=== PATIENT | female | born 1965 | race Two or more races ===

== ENCOUNTER 2018-05-01 20:48 | Emergency (ER) | payer BC ==
[~2018-05-01] VITALS: Ht 167.6 cm; Wt 90.7 kg
[~2018-05-01 20:48] MED LIST: AMOX500 PO; CIPR500 PO; HYDACE5 PO; HYDACE5325 PO; LEVFLO500 PO; METR500 PO; NAPR500 PO; OMEP20ER PO; OXYACE5T PO; Percocet 5-3251 EACH PO; RANI150 PO; RXHYD5325 PO
[2018-05-01 22:09] LABS: Source, Urine Clean Catch
[2018-05-01 22:12] LABS: BASOPHILS ABSOLUTE AUTO 0.04 K/mm3 (0.00-0.23); BASOPHILS PERCENT AUTO 1 % (0-2); EOSINOPHILS ABSOLUTE AUTO 0.18 K/mm3 (0.00-0.68); EOSINOPHILS PERCENT AUTO 2 % (0-6); Hematocrit 41.7 % (33.0-51.0); Hemoglobin 13.9 g/dL (11.5-16.0); IMMATURE GRAN ABSOLUTE AUTO 0.05 K/mm3 (0.00-0.10); IMMATURE GRAN PERCENT AUTO 1 % (0-1); LYMPHOCYTES ABSOLUTE AUTO 2.63 K/mm3 (0.84-5.20); LYMPHOCYTES PERCENT AUTO 30 % (21-46); MONOCYTES ABSOLUTE AUTO 0.58 K/mm3 (0.16-1.47); MONOCYTES PERCENT AUTO 7 % (4-13); Mean Corpuscular HGB 31.6 pg (26.0-34.0); Mean Corpuscular HGB Conc 33.3 g/dL (31.5-36.5); Mean Corpuscular Volume 95 fL (80-100); Mean Platelet Volume 9.5 fL (9.1-12.4); NEUTROPHILS PERCENT AUTO 60 % (41-73); Platelet Count 270 K/mm3 (150-400); RDW Coefficient Variation 13.4 % (11.7-14.2); RDW Standard Deviation 47.1 fL (35.1-46.3); White Blood Cell Count 8.78 K/mm3 (4.00-11.30)
[2018-05-01 22:14] LABS: Bilirubin, Urine Neg (Neg); Blood, Urine Neg (Neg); Glucose Qualitative, Urine Neg (Neg); Ketones, Urine Neg (Neg); Leukocyte Esterase, Urine Neg (Neg); Nitrite, Urine Neg (Neg); Protein, Urine Neg (Neg); Urobilinogen, Urine NORM (Normal); pH, Urine 6.5 (5.0-8.0)
[2018-05-01 22:16] LABS: Appearance, Urine Clear (Clear); Color, Urine Yellow (P-Yellow)
[2018-05-01 22:22] LABS: Alanine Aminotransfer (ALT/SGP 77 U/L (12-78); Albumin, Blood 3.2 g/dL (3.4-5.0); Albumin/Globulin Ratio 0.7 (0.8-1.8); Alk Phos 120 U/L (50-136); Anion Gap 7 mmol/L (6-16); Aspartate Aminotrans (AST/SGOT 76 U/L (12-37); Bilirubin, Total 0.4 mg/dL (0.1-1.0); Blood Urea Nitrogen 9 mg/dL (8-24); Bun/Creatinine Ratio 18.5 (12.0-20.0); CO2, Blood 28 mmol/L (21-32); Calcium, Blood 8.5 mg/dL (8.5-10.1); Chloride, Blood 106 mmol/L (98-108); Creatinine, Blood 0.49 mg/dL (0.40-1.00); Globulin, Blood 4.8 g/dL (2.2-4.0); Glomerular Filtration Rate >60 (60-); Glucose, Blood 109 mg/dL (70-99); Potassium, Blood 3.6 mmol/L (3.5-5.5); Sodium, Blood 141 mmol/L (136-145)
[2018-05-01] MEDS ORDERED: Prilosec Otc20 MG PO (23:06)
[2018-05-01] MEDS ORDERED: Carafate1 GM/10 ML PO (23:08)
== END 2018-05-01 23:24 | disposition home or self-care (01) ==
LOC: ER 20:48
PROVIDERS: Emergency Medicine
DX: R10.32 Left lower quadrant pain (principal); R11.2 Nausea with vomiting, unspecified
CPT/HCPCS: 36415; 80053; 81003; 83690; 85025; J1885; J2405; J7030

== ENCOUNTER → 2021-08-01 | Outpatient (CLI) | payer BC ==
[~2021-08-01] MED LIST changes: +Amox Tr-K Clv1 EAC1 PO; +Augmentin 500-1 EACH PO; +Carafate1 GM/10 ML PO; +OMEPRAZOLE20 MG PO; +Prilosec Otc20 MG PO
== END | disposition home or self-care (01) ==
LOC: LAB 14:45 → LAB SHORT 14:45
DX: R30.0 Dysuria (principal)
CPT/HCPCS: 87086

== ENCOUNTER 2022-11-03 08:21 | Inpatient (IN) | payer BC ==
[~2022-11-03] VITALS: Ht 162.6 cm; Wt 104.4 kg
[2022-11-03 08:47] LABS: Source, Urine Clean Catch
[2022-11-03 09:28] LABS: BASOPHILS ABSOLUTE AUTO 0.05 K/mm3 (0.00-0.23); BASOPHILS PERCENT AUTO 1 % (0-2); EOSINOPHILS ABSOLUTE AUTO 0.08 K/mm3 (0.00-0.68); EOSINOPHILS PERCENT AUTO 1 % (0-6); Hematocrit 41.8 % (33.0-51.0); Hemoglobin 14.9 g/dL (11.5-16.0); IMMATURE GRAN ABSOLUTE AUTO 0.03 K/mm3 (0.00-0.10); IMMATURE GRAN PERCENT AUTO 1 % (0-1); LYMPHOCYTES ABSOLUTE AUTO 2.06 K/mm3 (0.84-5.20); LYMPHOCYTES PERCENT AUTO 34 % (21-46); MONOCYTES ABSOLUTE AUTO 0.46 K/mm3 (0.16-1.47); MONOCYTES PERCENT AUTO 8 % (4-13); Mean Corpuscular HGB 35.1 pg (26.0-34.0); Mean Corpuscular HGB Conc 35.6 g/dL (31.5-36.5); Mean Corpuscular Volume 98 fL (80-100); Mean Platelet Volume 9.4 fL (9.1-12.4); NEUTROPHILS ABSOLUTE AUTO 3.34 K/mm3 (1.96-9.15); NEUTROPHILS PERCENT AUTO 56 % (41-73); Platelet Count 134 K/mm3 (150-400); RDW Coefficient Variation 12.3 % (11.7-14.2); RDW Standard Deviation 44.3 fL (35.1-46.3); Red Blood Cell Count 4.25 M/mm3 (3.80-5.20); White Blood Cell Count 6.02 K/mm3 (4.00-11.30)
[2022-11-03 09:30] LABS: Bilirubin, Urine Neg (Neg); Blood, Urine 3+ (Neg); Glucose Qualitative, Urine Neg (Neg); Ketones, Urine Neg (Neg); Leukocyte Esterase, Urine 2+ (Neg); Nitrite, Urine Neg (Neg); Protein, Urine 3+ (Neg); Specific Gravity, Urine 1.015 (1.003-1.022); Urobilinogen, Urine 2+ (Normal)
[2022-11-03 09:42] LABS: Appearance, Urine Hazy (Clear); Color, Urine Yellow (P-Yellow)
[2022-11-03 09:48] LABS: Bacteria Few /hpf; Squamous Epithelial Cells Rare /hpf (Few)
[2022-11-03 09:51] LABS: Albumin, Blood 2.7 g/dL (3.4-5.0); Albumin/Globulin Ratio 0.5 (0.8-1.8); Bilirubin, Total 1.4 mg/dL (0.1-1.0); Bun/Creatinine Ratio 9.4 (12.0-20.0); Calcium, Blood 8.6 mg/dL (8.5-10.1); Creatinine, Blood 0.43 mg/dL (0.40-1.00); Globulin, Blood 5.1 g/dL (2.2-4.0); Potassium, Blood 3.4 mmol/L (3.5-5.5); Total Protein, Blood 7.8 g/dL (6.4-8.2)
[2022-11-03] MEDS ORDERED: IBUP800 PO (15:09)
[2022-11-03] MEDS ORDERED: Acetaminophen650 M1 PO (15:09)
--- NOTE | 2022-11-03 16:02 | NUR ---
SHIFT SUMMARY; PATIENT ARRIVED TO [facility] FLOOR APPROX 1530 TODAY FROM ER. SHE IS AO X 4. SPOUSE AT BEDSIDE ASSISTS IN TRANSLATING WHEN PATIENT DOES NOT UNDERSTAND. SHE UNDERSTANDS FAROESE BUT HAS DIFFICULTY SPEAKING IT. PATIENT IS NPO. HER VITAL SIGNS ARE STABLE AND SHE IS COOPERATIVE WITH CARE. SHE IS INDEPENDANT IN ROOM AND USES CALL LIGHT APPROPRIATLY. CURRENTLY PATIENT IS IN CT HAVING A ABDOMINAL CT WITH CONTRAST. WHEN SHE RETURNS IV NS WILL BE HANGING AT 125ML/HR HER VITAL SIGNS ARE WNL. HER LUNGS ARE CLEAR TO AUSCULTATION. NO SKIN ISSUES ARE NOTED.
--- NOTE | 2022-11-04 05:15 | NUR ---
SHIFT SUMMARY 57 YR F ADMITTED ON 11/03/22 FOR COLOVESICAL FISTULA. FULL CODE. PT C/O PAIN IN THE RLQ AT LEVEL OF 7-8. SHE HAS BEEN MEDICATED TWICE WITH FENTANYL PER EMAR. AT APPROX 0300 VITALS WERE TAKEN AND THE RESULTS WERE CONCERNING. HER HR WAS FLUCTUATING BETWEEN MID 30'S-140'S. HER TEMP WAS 103 ORALLY AND 101 TEMPORALY. BP HAD DROPPED TO 81/49 AND HR WAS 41. HOSPITALIST WAS CALLED AND FLUID BOLUS WAS GIVEN WELL TYLENOL AND TELE WAS ORDERED. TEMP CAME DOWN AND BP IMPROVED. PER DOUBLE NEEDLE STITCHER SHE WAS IN SR @ 114. SHE APPEARS TO BE RESTING PEACEFULLY NOW BUT THIS NURSE IS KEEPING A CLOSE EYE ON HER. SURGICAL CONSULT IN THE A.M. STAYED IN THE ROOM WITH HER OVERNIGHT.
[2022-11-04 06:04] LABS: BASOPHILS ABSOLUTE AUTO 0.03 K/mm3 (0.00-0.23); BASOPHILS PERCENT AUTO 1 % (0-2); EOSINOPHILS ABSOLUTE AUTO 0.01 K/mm3 (0.00-0.68); EOSINOPHILS PERCENT AUTO 0 % (0-6); Hematocrit 35.7 % (33.0-51.0); Hemoglobin 12.2 g/dL (11.5-16.0); IMMATURE GRAN ABSOLUTE AUTO 0.02 K/mm3 (0.00-0.10); IMMATURE GRAN PERCENT AUTO 0 % (0-1); LYMPHOCYTES ABSOLUTE AUTO 0.27 K/mm3 (0.84-5.20); LYMPHOCYTES PERCENT AUTO 4 % (21-46); MONOCYTES ABSOLUTE AUTO 0.08 K/mm3 (0.16-1.47); MONOCYTES PERCENT AUTO 1 % (4-13); Mean Corpuscular HGB Conc 34.2 g/dL (31.5-36.5); Mean Corpuscular Volume 102 fL (80-100); Mean Platelet Volume 9.7 fL (9.1-12.4); NEUTROPHILS ABSOLUTE AUTO 5.83 K/mm3 (1.96-9.15); NEUTROPHILS PERCENT AUTO 93 % (41-73); Platelet Count 106 K/mm3 (150-400); RDW Coefficient Variation 12.7 % (11.7-14.2); RDW Standard Deviation 47.2 fL (35.1-46.3); Red Blood Cell Count 3.49 M/mm3 (3.80-5.20); White Blood Cell Count 6.24 K/mm3 (4.00-11.30)
[2022-11-04 09:02] LABS: Bun/Creatinine Ratio 6.1 (12.0-20.0); Calcium, Blood 7.9 mg/dL (8.5-10.1); Creatinine, Blood 0.82 mg/dL (0.40-1.00); Potassium, Blood 2.6 mmol/L (3.5-5.5)
[2022-11-04 20:56] LABS: Source, Urine Clean Catch
[2022-11-04 21:22] LABS: Appearance, Urine Clear (Clear); Bilirubin, Urine Neg (Neg); Blood, Urine 1+ (Neg); Color, Urine Yellow (P-Yellow); Glucose Qualitative, Urine Neg (Neg); Ketones, Urine Neg (Neg); Leukocyte Esterase, Urine 1+ (Neg); Nitrite, Urine Neg (Neg); Protein, Urine 2+ (Neg); Specific Gravity, Urine 1.005 (1.003-1.022); Urobilinogen, Urine NORM (Normal)
--- NOTE | 2022-11-04 21:45 | NUR ---
Received patient on floor at 1919. Received critical LA of 5.1 called into resident who ordered repeat LA and 500ml LR bolus, shortly after that started Dr. Matson called and DC'd the LR and ordered 2L NS bolus and sodium bicarb. Patients MAP continues to drop. Will contact resident.
[2022-11-04 22:08] LABS: Bacteria Mod /hpf; Red Blood Cells, Urine 0-2 /hpf (0-2); Squamous Epithelial Cells Mod /hpf (Few)
--- NOTE | 2022-11-04 22:31 | NUR ---
Patients BP continued to decline despite fluid resuscitation, resident called and came to see patient, order to transfer to ICU fro Levophed. Report called to Hiwot RUCKER and transferred to ICU 15.
--- NOTE | 2022-11-04 23:56 | NUR ---
PT TRANSFER TO ICU 15: PT ARRIVED TO THE UNIT @ 2219 FROM PCU 7. PT TRANSFERRED OVER TO THE UNIT DUE TO HYPOTENSION. WHEN PT ARRIVED SBP IN THE 70'S AND MAP 55<. PT HAD SECOND NS BOLUS INFUSING AND LEVOPHED INITIATED AT 2 MCG; LEVO TITRATED UP TO 6 MCG AND SBP NOW IN THE 100'S. PT HAS NO C/O CHEST PAIN AT THIS TIME; PT SR ON MONITOR. PT BROUGHT OVER TO THE UNIT ON RA AND REMAINS ON RA WITH SPO2 96< AND RR 20-24. PT AFEBRIL WITH TEMP AT 98.7. PT HAS HYPERACTIVE BS IN ALL QUADRANTS AND NO C/O ABD PAIN; ABD ROUND, SOFT, NON-TENDER. PT HAS PPP X 4; PEDAL PULSES FAINT BUT PALPABLE. BED LOWERED, CALL LIGHT IN REACH, WILL CONTINUE TO MONITOR.
[2022-11-05 03:36] LABS: Adenovirus F 40/41 Not Detected (NOT DETECT); Astrovirus Not Detected (NOT DETECT); Campylobacter Sp Not Detected (NOT DETECT); Cryptosporidium Not Detected (NOT DETECT); Cyclospora Cayetanensis Not Detected (NOT DETECT); E. Coli O157 Not Detected (NOT DETECT); Entamoeba Histolytica Not Detected (NOT DETECT); Enteroaggregative E. coli-EAEC Not Detected (NOT DETECT); Enteropathogenic E. coli-EPEC Not Detected (NOT DETECT); Enterotoxigenic E. coli-ETEC Not Detected (NOT DETECT); Giardia Lamblia Not Detected (NOT DETECT); Norovirus GI/GII Not Detected (NOT DETECT); Plesiomonas Shigelloides Not Detected (NOT DETECT); Rotavirus A Not Detected (NOT DETECT); Salmonella Sp Not Detected (NOT DETECT); Sapovirus Not Detected (NOT DETECT); Shiga Toxin-prod E. coli-STEC Not Detected (NOT DETECT); Shigella/Enteroin E. coli-EIEC Not Detected (NOT DETECT); Vibrio Cholerae Not Detected (NOT DETECT); Vibrio Sp Not Detected (NOT DETECT); Yersinia Enterocolitica Not Detected (NOT DETECT)
[2022-11-05 04:03] LABS: Hematocrit 34.1 % (33.0-51.0); Hemoglobin 11.9 g/dL (11.5-16.0); Mean Corpuscular HGB 35.6 pg (26.0-34.0); Mean Corpuscular HGB Conc 34.9 g/dL (31.5-36.5); Mean Corpuscular Volume 102 fL (80-100); Mean Platelet Volume 9.8 fL (9.1-12.4); Platelet Count 115 K/mm3 (150-400); RDW Standard Deviation 48.6 fL (35.1-46.3); Red Blood Cell Count 3.34 M/mm3 (3.80-5.20); White Blood Cell Count 17.48 K/mm3 (4.00-11.30)
[2022-11-05 04:28] LABS: Albumin, Blood 1.7 g/dL (3.4-5.0); Albumin/Globulin Ratio 0.4 (0.8-1.8); Bilirubin, Total 1.1 mg/dL (0.1-1.0); Bun/Creatinine Ratio 14.8 (12.0-20.0); Calcium, Blood 7.3 mg/dL (8.5-10.1); Creatinine, Blood 0.61 mg/dL (0.40-1.00); Globulin, Blood 4.2 g/dL (2.2-4.0); Magnesium, Blood 1.5 mg/dL (1.6-2.4); Potassium, Blood 3.7 mmol/L (3.5-5.5); Total Protein, Blood 5.9 g/dL (6.4-8.2)
[2022-11-05 06:42] LABS: BAND PERCENT MAN 7 % (0-8); BASOPHILS PERCENT MAN 0 % (0-2); EOSINOPHILS ABSOLUTE MAN 0.34 K/mm3 (0.00-0.68); EOSINOPHILS PERCENT MAN 2 % (0-6); LYMPHOCYTES ABSOLUTE MAN 0.87 K/mm3 (0.84-5.20); LYMPHOCYTES PERCENT MAN 5 % (21-46); METAMYELOCYTE ABSOLUTE MAN 0.17 K/mm3 (0.00-0.00); METAMYELOCYTE PERCENT MAN 1 % (0-0); MONOCYTES ABSOLUTE MAN 0.34 K/mm3 (0.16-1.47); MONOCYTES PERCENT MAN 2 % (4-13); MYELOCYTE ABSOLUTE MAN 0.34 K/mm3 (0.00-0.00); MYELOCYTE PERCENT MAN 2 % (0-0); NEUTROPHILS ABSOLUTE MAN 15.38 K/mm3 (1.96-9.15); SEG NEUTROPHILS PERCENT MAN 81 % (41-73); TOTAL CELLS COUNTED 100
--- NOTE | 2022-11-05 06:45 | NUR ---
SHIFT SUMMARY: PT BP HAS IMPROVED WITH SBP IN THE 100'S, MAP 70< AND LEVO GTT @ 2 MCG. PT HAS HAD NO C/O CHEST PAIN OR SOB. PT HAS HAD MANY EPISODES OF DIARRHEA BUT NO C/O ABD PAIN. PT INDEPENDENT WITH BED MOBILITY AND USES SBA WITH TRANSFERRING TO BEDSIDE COMMODE. BED LOWERED, CALL LIGHT IN REACH, WILL CONTINUE TO MONITOR UNTIL ONCOMING RN ARRIVES.
--- NOTE | 2022-11-05 07:33 | NUR ---
Assumed care for pt at 0700. Pt was received from the PCU last night for hypotension, currently on Levophed gtt @ 2 mcg/min and LR gtt @ 150 ml/hr. Pt stil requires a K Phos replacement but does not have a central line at this time, working to have one placed. Spoke w/ Dr. Ayers and he will order a stat abdominal CT this morning. Pt had loose stool overnight. is at bedside, he has acted as birdcage assembler as pt is primarily salvadorean-speaking.
--- NOTE | 2022-11-05 08:11 | NUR ---
RN accompanied pt to CT for a stat scan. Pt remained on Levophed @ 2 mcg/min. Pt left room @ 0750 and returned at 0810.
--- NOTE | 2022-11-05 13:46 | NUR ---
"Spiritual Care Pt. Request | Attempted Pt. is awake in bed and welcomes my visit. After introductions Pt. displayed evidence of indifference to spiritual care. Pt. verbalized that she has no . Will monitor though Pt. doesn't display interest in spiritual care."
--- NOTE | 2022-11-05 14:23 | NUR ---
Levophed has been turned off since 11211/05/22/ Spoke w/ Dr. Marcos who advised to turn of LR gtt and check BP. If her MAPs remain adequate, she should be able to return to the PCU. LR gtt stopped at 1422.
--- NOTE | 2022-11-05 18:37 | NUR ---
LEVOPHED GTT STOPPED @ 1121 AND LR GTT STOPPED @ 1423. PT MAPs REMIANED BETWEEN 70-80 THROUGHOUT THE AFTERNOON. PT ASSIGNED TO PCU 11. RN WHEELED PT W/ AUGUSTUS BARNETT TO PCU 11 AND GAVE BEDSIDE REPORT TO HARMONY. PT HAD NO ACUTE COMPLAINTS AND LEFT ICU W/ HER CARRYING HER PERSONAL EFFECTS.
--- NOTE | 2022-11-06 04:48 | NUR ---
SHIFT SUMMARY: PT ALERT AND ORIENTED X4, ABLE TO FOLLOW COMMANDS AND MAKE NEEDS KNOWN. SPANINSH SPEAKING ONLY, AND SCREEN PRINTING STENCIL PREPARER PHONE AT BEDSIDE. BP STABLE, HR SR 70'S, AFEBRILE, SATURATIONS >95% ON ROOM AIR. RESPIRATIONS EVEN AND UNLABORED. PULSES STRONG AND EQUAL THROUGHOUT. BS HEARD X4 QUADRANTS. NO COMPLAINTS OF N/V/ABDOMINAL PAIN THROUGHOUT THE NIGHT. PT COMPLAINED OF HEADACHE AT BEGINNING OF SHIFT, MEDICATED PER EMAR WITH GOOD RESULTS. LR GTT IN L. FOREARM AT 150MLS/HR. PT ABLE TO REPOS IND IN BED. IND TO AND FROM BATHROOM. NO BM THIS SHIFT. BED IN LOW, CALL LIGHT IN REACH, AT BEDSIDE, WILL REPORT TO ONCOMING RN.
[2022-11-06 05:38] LABS: BASOPHILS ABSOLUTE AUTO 0.06 K/mm3 (0.00-0.23); BASOPHILS PERCENT AUTO 1 % (0-2); EOSINOPHILS ABSOLUTE AUTO 0.16 K/mm3 (0.00-0.68); EOSINOPHILS PERCENT AUTO 2 % (0-6); Hematocrit 33.4 % (33.0-51.0); Hemoglobin 11.2 g/dL (11.5-16.0); IMMATURE GRAN ABSOLUTE AUTO 0.18 K/mm3 (0.00-0.10); IMMATURE GRAN PERCENT AUTO 2 % (0-1); LYMPHOCYTES ABSOLUTE AUTO 1.18 K/mm3 (0.84-5.20); LYMPHOCYTES PERCENT AUTO 16 % (21-46); MONOCYTES ABSOLUTE AUTO 0.54 K/mm3 (0.16-1.47); MONOCYTES PERCENT AUTO 7 % (4-13); Mean Corpuscular HGB 34.9 pg (26.0-34.0); Mean Corpuscular HGB Conc 33.5 g/dL (31.5-36.5); Mean Corpuscular Volume 104 fL (80-100); Mean Platelet Volume 10.2 fL (9.1-12.4); NEUTROPHILS PERCENT AUTO 72 % (41-73); Platelet Count 135 K/mm3 (150-400); RDW Coefficient Variation 13.3 % (11.7-14.2); RDW Standard Deviation 51.4 fL (35.1-46.3); Red Blood Cell Count 3.21 M/mm3 (3.80-5.20); White Blood Cell Count 7.52 K/mm3 (4.00-11.30)
[2022-11-06 05:51] LABS: Bun/Creatinine Ratio 9.8 (12.0-20.0); Calcium, Blood 7.7 mg/dL (8.5-10.1); Creatinine, Blood 0.61 mg/dL (0.40-1.00); Phosphorus, Blood 3.1 mg/dL (2.5-4.9); Potassium, Blood 3.8 mmol/L (3.5-5.5)
--- NOTE | 2022-11-06 18:21 | NUR ---
SHIFT SUMMARY PT HAS BEEN RESTING QUIETLY IN ROOM THROUGHOUT THE DAY. PT'S HAS BEEN AT BEDSIDE ASSISTING PT WITH ADL'S AND WITH COMMUNICATION WITH STAFF. PT C/O HEADACHE IN THE AM THAT WAS TREATED WITH MEDICATION PER EMAR AND UNINTERRUPTED REST. PT DENIED ABDOMINAL DISCOMFORT OR OTHER SOURCES OF PAIN/DISCOMFORT. ALL VITAL SIGNS HAVE REMAINED STABLE, NO ACUTE CHANGES IN CONDITION.
--- NOTE | 2022-11-07 04:39 | NUR ---
SHIFT SUMMARY: PT WITH NO ACUTE CHANGES OVERNIGHT. BP AND HR STABLE, AFEBRILE, SATURATIONS >96% ON ROOM AIR. NO COMPLAINTS OF N/V/ABDOMINAL PAIN THROUGHOUT THE NIGHT. MEDICATED X1 FOR PAIN. PT REMAINS IND IN ROOM, ABLE TO AMBULATE TO AND FROM BATHROOM. REMAINED AT BEDSIDE. PLAN FOR POSSIBLE D/C IN AM. BED IN LOW, CALL LIGHT IN REACH, WILL REPORT TO ONCOMING RN.
--- NOTE | 2022-11-07 09:56 | NUR ---
CARE ASSUMPTION THIS RN ASSUMED CARE AT 0700. VSS. TELE SR 70S. PATIENT IS ALERT AND ORIENTED X4. PATIENT REPORTS NO PAIN, CHEST PAIN/PRESSURE, OR SHORTNESS OF BREATH. SEE SHIFT ASSESSMENT FOR FURTHER DETIALS. PATIENT IS INDEPDENT IN ROOM. PATIENT USES CALL LIGHT APPORPIATELY. CALL LIGHT WITHIN REACH AND BED IN LOWEST POSITION. MD JASSO BY TO SEE PATIENT. PATIENT CAN BE DISCHARGED TODAY AND MD MURCIA OFFICE WILL FOLLOW UP WITH THE PATIENT FOR OUT PATIENT COLONOSCOPY. PLAN OF CARE UP TO DATE.
[2022-11-07] MEDS ORDERED: AMOCLA875 PO (11:11)
[2022-11-07] MEDS ORDERED: VISBIOME 112.51 EACH PO (11:13)
--- NOTE | 2022-11-07 11:53 | NUR ---
DISCHARGE PATIENT LEFT AT 1153. PATIENT WAS IN NO DISTRESS. PATIENT HAD ALL BELONGINGS AND DISCHARGE EDUCATION WITH THE PATIENT. THIS RN EDUCATED THE PATIENT ON DISCHARGE EDUCATION AND POST-HOSPITILIZATION FOLLOW UP, AND THAT THEY WILL BE CONTACTED TO MAKE AN APPOINTMENT FOR OUT PATIENT COLONOSCOPY. PATIENT FAMILY MEMBER TRANSLATED AND PATIENT AND FAMILY VERBALIZED UNDERSTANDING. [facility] [address]. PATIENT LEFT VIA WHEELCHAIR.
== END 2022-11-07 12:08 | disposition home or self-care (01) | DRG 871 ==
LOC: ER 08:21 → MEDS 08:22 → PCU 11-04 12:15 → ICUW 11-04 12:15 → MEDS 11-04 12:16 → PCU 11-04 19:30 → ICUW 11-04 22:10 → PCU 11-05 18:00
PROVIDERS: Internal Medicine; Nurse Practitioner Acute Care; Physician Assistant; Student in an Organized Health Care Education/Training Program; Surgery; ADMIT Internal Medicine
PROC: 3E03329 Introduction of Other Anti-infective into Peripheral Vein, Percutaneous Approach (ICD-10-PCS; principal; 2022-11-04)
PROC: 3E033XZ Introduction of Vasopressor into Peripheral Vein, Percutaneous Approach (ICD-10-PCS; 2022-11-04)
DX: A41.9 Sepsis, unspecified organism (principal); R65.21 Severe sepsis with septic shock; K57.20 Diverticulitis of large intestine with perforation and abscess without bleeding; N32.1 Vesicointestinal fistula; E87.1 Hypo-osmolality and hyponatremia; Z28.21 Immunization not carried out because of patient refusal; R65.20 Severe sepsis without septic shock; K21.9 Gastro-esophageal reflux disease without esophagitis; F17.210 Nicotine dependence, cigarettes, uncomplicated; E87.6 Hypokalemia; I95.9 Hypotension, unspecified; E83.42 Hypomagnesemia; E83.51 Hypocalcemia; E83.39 Other disorders of phosphorus metabolism; Z87.440 Personal history of urinary (tract) infections; Z79.899 Other long term (current) drug therapy
CPT/HCPCS: 36415; 74176; 74177; 80048; 80053; 81001; 82330; 83605; 83690; 83735; 84100; 84132; 85025; 87040; 87086; 87507; 96361; 96365-59; 96366; 96375; 96376; 99285-25; A9270; G0378; J0744; J1885; J2405; J2543; J3010; J3475; J3480; J7030; J7040; J7050; J7060; J7120; Q9967

== ENCOUNTER → 2023-05-06 | Outpatient (CLI) | payer BC ==
[~2023-05-06] MED LIST changes: +AMOCLA875 PO; +Acetaminophen650 M1 PO; +IBUP800 PO; +VISBIOME 112.51 EACH PO
== END | disposition home or self-care (01) ==
LOC: LAB SHORT 08:45 → LAB 08:45
DX: R30.0 Dysuria (principal)
CPT/HCPCS: 87077; 87086; 87186

== ENCOUNTER → 2023-11-19 | Outpatient (CLI) | payer BC ==
[~2023-11-19] MED LIST changes: +BUSPIRONE HCL5 M6; +CALMOSEPTINE; +KETO15TC TOP; +TRIDERM28.4 GM; +TRIDERM28.4 GM TOP
== END ==
LOC: LAB SHORT 16:21
DX: R82.90 Unspecified abnormal findings in urine (principal)
CPT/HCPCS: 87077; 87086; 87186

== ENCOUNTER 2023-12-05 20:07 | Inpatient (IN) | payer BC ==
[~2023-12-05] VITALS: Ht 160 cm; Wt 97.6 kg
[2023-12-05] MEDS ORDERED: Ondansetron HCl 2 MG / ML 2ML Vial IV ONE ×2 (20:50→22:45)
[2023-12-05 21:00] LABS: BASOPHILS ABSOLUTE AUTO 0.07 K/mm3 (0.00-0.23); BASOPHILS PERCENT AUTO 1 % (0-2); EOSINOPHILS ABSOLUTE AUTO 0.01 K/mm3 (0.00-0.68); EOSINOPHILS PERCENT AUTO 0 % (0-6); Hematocrit 27.8 % (33.0-51.0); Hemoglobin 9.8 g/dL (11.5-16.0); IMMATURE GRAN ABSOLUTE AUTO 0.04 K/mm3 (0.00-0.10); IMMATURE GRAN PERCENT AUTO 0 % (0-1); LYMPHOCYTES ABSOLUTE AUTO 1.83 K/mm3 (0.84-5.20); LYMPHOCYTES PERCENT AUTO 16 % (21-46); MONOCYTES ABSOLUTE AUTO 0.87 K/mm3 (0.16-1.47); MONOCYTES PERCENT AUTO 8 % (4-13); Mean Corpuscular HGB 37.1 pg (26.0-34.0); Mean Corpuscular HGB Conc 35.3 g/dL (31.5-36.5); Mean Corpuscular Volume 105 fL (80-100); Mean Platelet Volume 9.1 fL (9.1-12.4); NEUTROPHILS ABSOLUTE AUTO 8.82 K/mm3 (1.96-9.15); NEUTROPHILS PERCENT AUTO 76 % (41-73); Platelet Count 147 K/mm3 (150-400); RDW Standard Deviation 53.5 fL (35.1-46.3); Red Blood Cell Count 2.64 M/mm3 (3.80-5.20); White Blood Cell Count 11.64 K/mm3 (4.00-11.30)
[2023-12-05 21:29] LABS: Albumin, Blood 1.9 g/dL (3.4-5.0); Albumin/Globulin Ratio 0.3 (0.8-1.8); Bilirubin, Total 4.1 mg/dL (0.1-1.0); Calcium, Blood 8.4 mg/dL (8.5-10.1); Creatinine, Blood 0.55 mg/dL (0.40-1.00); Globulin, Blood 6.6 g/dL (2.2-4.0); Potassium, Blood 4.2 mmol/L (3.5-5.5); Total Protein, Blood 8.5 g/dL (6.4-8.2)
[2023-12-05] MEDS ORDERED: NS 1,000 ML IV SCH ×2 (22:40→23:50)
[2023-12-05] MEDS ORDERED: MetroNIDAZOLE 500MG/NS 100 ml 100 ML IV ONE (22:40)
[2023-12-05] MEDS ORDERED: Piperacillin/Tazobactam Sod 4.5 GM in NS 100 ML IV ONE (22:40)
[2023-12-05] MEDS ORDERED: FentaNYL Citrate 50 MCG/ML 2 ML Injection IV ONE (22:45)
[2023-12-05 23:06] LABS: Source, Urine Straight Cath
[2023-12-05 23:21] LABS: Appearance, Urine Cloudy (Clear); Bilirubin, Urine Neg (Neg); Blood, Urine 5+ (Neg); Color, Urine Red (P-Yellow); Glucose Qualitative, Urine Neg (Neg); Ketones, Urine Neg (Neg); Leukocyte Esterase, Urine 3+ (Neg); Nitrite, Urine Neg (Neg); Protein, Urine 2+ (Neg); Urobilinogen, Urine 1+ (Normal)
[2023-12-05 23:36] LABS: Amorphous Light (0-Heavy); Bacteria Many /hpf; Mucus Light (0-Heavy); Red Blood Cells, Urine TNTC /hpf (0-2); Squamous Epithelial Cells Mod /hpf (Few)
[2023-12-05] MEDS ORDERED: FentaNYL Citrate 50 MCG/ML 2 ML Injection IV PRN (23:50)
[2023-12-05] MEDS ORDERED: ChlordiazePOXIDE 25 MG Cap PO PRN (23:50)
[2023-12-05] MEDS ORDERED: FLU VACC QS2023-24(6MOS UP)/PF 60 MCG/0.5 ML SYRINGE IM ONE (23:50)
[2023-12-05] MEDS ORDERED: LORazepam 2 MG/ML 1ML Injection IV PRN (23:50)
[2023-12-06] VITALS (16 sets, daily range): BP systolic 84–99; BP diastolic 50–69
[2023-12-06] MEDS ORDERED: NS 1,000 ML IV SCH ×2 (01:45→16:10)
[2023-12-06 03:35] LABS: Hematocrit 22.5 % (33.0-51.0); Hemoglobin 7.9 g/dL (11.5-16.0); Mean Corpuscular HGB 37.3 pg (26.0-34.0); Mean Corpuscular HGB Conc 35.1 g/dL (31.5-36.5); Mean Corpuscular Volume 106 fL (80-100); Mean Platelet Volume 9.2 fL (9.1-12.4); Platelet Count 98 K/mm3 (150-400); RDW Coefficient Variation 14.1 % (11.7-14.2); RDW Standard Deviation 54.7 fL (35.1-46.3); Red Blood Cell Count 2.12 M/mm3 (3.80-5.20); White Blood Cell Count 6.34 K/mm3 (4.00-11.30)
[2023-12-06 03:53] LABS: Bun/Creatinine Ratio 10.2 (12.0-20.0); Calcium, Blood 7.9 mg/dL (8.5-10.1); Creatinine, Blood 0.59 mg/dL (0.40-1.00); Potassium, Blood 4.3 mmol/L (3.5-5.5)
--- NOTE | 2023-12-06 05:34 | NUR ---
SHIFT SUMMARY. PT ARRIVED ON UNIT EARLY THIS MORNING. ADMITTED FOR SEPSIS R/T DIVERTICULITIS. AOX4, PLEASANT, COOPERATIVE WITH CARE. PRIMARILY BURMESE SPEAKING, HAS STAYED AT BEDSIDE TO HELP WITH TRANSLATION AND CONVEYING PT NEEDS. PT PAIN HAS BEEN ADEQUATELY MANAGED THUS FAR, ABLE TO SLEEP THROUGH MOST OF MORNING SINCE ARRIVAL. ADMISSION PROCESS COMPLETED PER PROTOCOL. VITALS STABLE OUTSIDE OF SOFT BP WHICH HAS REMAINED STABLE PT ASYMPTOMATIC IN THIS REGARD. TELE ON SINCE ARRIVAL, RUNNING NSR WITH NO EVENTS THUS FAR. PT WAS ABLE TO STAND AND TRANSFER FROM ED [facility] BUT HAS REMAINED IN BED SINCE. BED LOCKED IN LOWEST POSITION. CALL LIGHT LEFT WITHIN REACH. CONTINUING TO MONITOR.
[2023-12-06] MEDS ORDERED: Piperacillin/Tazobactam Sod 3.375 GM in NS 50 ML IV SCH (06:00)
[2023-12-06] MEDS ORDERED: Pantoprazole Sodium 40 MG Injection IV SCH (06:00)
--- NOTE | 2023-12-06 06:42 | NUR ---
BP HAS BEEN SOFT. MOST RECENT BP 86/55 WITH MAP OF (65). CALLED TO NOTIFY HOSPITALIST DR. TRAVIS. DIRECTED TO ORDER AND INFUSE 1 LITER BOLUS OF NS. ORDER ENTERED AND WILL INFUSE ONCE AVAILABLE.
[2023-12-06] MEDS ORDERED: NS 1,000 ML IV ONE (06:45)
[2023-12-06] MEDS ORDERED: FentaNYL Citrate 50 MCG/ML 2 ML Injection IV PRN (10:00)
[2023-12-06] MEDS ORDERED: Lactated Ringer's 1,000 ML IV SCH (15:55)
--- NOTE | 2023-12-06 17:08 | NUR ---
SHIFT SUMMARY: PT REMAINS ALERT AND ORIENTED X4, ABLE TO FOLLOW COMMANDS AND MAKE NEEDS KNOWN. STRENGTH EQUAL BILATERALLY. PT IS MACEDONIAN SPEAKING ONLY, FLIGHT NURSE PHONE AT BEDSIDE. BP REMAINED SOFT THROUGHOUT SHIFT, MAP >65. NS GTT @150ML/HR. HR SR 80'S. AFEBRILE. SPO2 >96% ON ROOM AIR. RESPIRATIONS EVEN AND UNLABORED. PULSES STRONG AND EQUAL THROUGHOUT. ABDOMEN SOFT, TENDER WITH TOUCH, BOWEL SOUNDS +. SURGEON IN THIS AM, PLAN TO DISCUSS CASE WITH DR JASSO 12/07/23. PT NOW ON CLEAR LIQUID DIET. STAND BY ASSIST TO AND FROM BATHROOM. PT RATING 7/10 ABDOMINAL PAIN, MEDICATED PER EMAR. AT BEDSIDE THROUGHOUT THE DAY, UPDATED ON PT CARE. BED IN LOW, CALL LIGHT IN REACH, WILL REPORT TO ONCOMING RN.
--- NOTE | 2023-12-06 20:44 | NUR ---
ASSUMPTION OF CARE: THIS RN ASSUMED CARE AT APPROX 1915. PATIENT ALERT, RESTING IN BED WATCHING TV. AT BEDSIDE ASSISTING WITH CARE. INTERPRETOR PHONE AT BEDSIDE PATIENT IS TAJIK SPEAKING ONLY. IS ABLE TO COMMUNICATE NEEDS EFFECTIVELY. COOPERATIVE WITH CARE. TELEMETRY SHOWING SINUS 80s. BP SOFT, SBP 80s-90s. MAP >60. IVF CURRENTLY INFUSING PER EMAR. DENIES CHEST PAIN, PRESSURE. IS ON ROOM AIR, SATs >90%. RESPIRATIONS EVEN, UNLABORED. REPORTS 8/10 ABDOMINAL PAIN, MEDICATED PER EMAR WITH IV FENTANYL. REPORTED RELIEF. DENIES N/V. HYPOACTIVE BOWEL TONES NOTED. IS A STAND BY ASSIST WITH MOBILITY AND ADLs. CALL LIGHT IN REACH.
--- NOTE | 2023-12-06 22:39 | NUR ---
SOFT BLOOD PRESSURE PATIENT's BLOOD PRESSURE SOFT THROUGHOUT DAY AND THIS EVENING, SBP 80s-90s. MAP >60. REPORTS MILD DIZZINESS WITH MOBILITY. IVF INFUSING AT 150ML/HR, ORDER TO DC AFTER BAG IS FINISHED INFUSING. MD CONTACTED WITH UPDATE. RECEIVED NO NEW ORDERS AT THIS TIME. CONTINUE TO MONITOR AND TO CONTACT IF MAP <60.
[2023-12-07] VITALS (18 sets, daily range): BP systolic 84–102; BP diastolic 52–70
[2023-12-07] MEDS ORDERED: NS 250 ML IV PRN ×2 (02:45→09:55)
--- NOTE | 2023-12-07 05:05 | NUR ---
SHIFT SUMMARY: NO ACUTE CHANGES SINCE PREVIOUS NOTES. TELEMETRY SHOWING SINUS 80s. BP REMAINS SOFT, SBP 80s-90s. MAP >60. (SEE PREVIOUS NOTE REGARDING PARAMETERS SET BY MD). REPORTS MILD DIZZINESS WITH POSITION CHANGES, MOBILITY. AT BEDSIDE ASSISTING WITH CARE, MOBILITY. REMAINS ON ROOM AIR, SATs >90%. RESPIRATIONS EVEN, UNLABORED. MEDICATED PER EMAR WITH IV FENTANYL FOR LOWER ABDOMINAL PAIN. VOIDING. THIS RN PROVIDED EDUCATION REGARDING USE OF MEASURING DEVICE TO OBTAIN ACCURATE I/O. NO BM THIS SHIFT. CALL LIGHT IN REACH. WILL REPORT TO ONCOMING RN.
[2023-12-07 07:03] LABS: BASOPHILS ABSOLUTE AUTO 0.03 K/mm3 (0.00-0.23); BASOPHILS PERCENT AUTO 1 % (0-2); EOSINOPHILS ABSOLUTE AUTO 0.06 K/mm3 (0.00-0.68); EOSINOPHILS PERCENT AUTO 2 % (0-6); Hematocrit 19.8 % (33.0-51.0); Hemoglobin 6.8 g/dL (11.5-16.0); IMMATURE GRAN PERCENT AUTO 0 % (0-1); LYMPHOCYTES ABSOLUTE AUTO 0.87 K/mm3 (0.84-5.20); LYMPHOCYTES PERCENT AUTO 25 % (21-46); MONOCYTES ABSOLUTE AUTO 0.28 K/mm3 (0.16-1.47); MONOCYTES PERCENT AUTO 8 % (4-13); Mean Corpuscular HGB 37.4 pg (26.0-34.0); Mean Corpuscular HGB Conc 34.3 g/dL (31.5-36.5); Mean Corpuscular Volume 109 fL (80-100); Mean Platelet Volume 9.3 fL (9.1-12.4); NEUTROPHILS ABSOLUTE AUTO 2.18 K/mm3 (1.96-9.15); NEUTROPHILS PERCENT AUTO 64 % (41-73); Platelet Count 88 K/mm3 (150-400); RDW Coefficient Variation 14.5 % (11.7-14.2); RDW Standard Deviation 57.1 fL (35.1-46.3); Red Blood Cell Count 1.82 M/mm3 (3.80-5.20); White Blood Cell Count 3.42 K/mm3 (4.00-11.30)
[2023-12-07 07:09] LABS: Albumin, Blood 1.3 g/dL (3.4-5.0); Albumin/Globulin Ratio 0.3 (0.8-1.8); Bilirubin, Total 4.1 mg/dL (0.1-1.0); Bun/Creatinine Ratio 10.9 (12.0-20.0); Calcium, Blood 7.7 mg/dL (8.5-10.1); Creatinine, Blood 0.64 mg/dL (0.40-1.00); Globulin, Blood 4.8 g/dL (2.2-4.0); Potassium, Blood 4.3 mmol/L (3.5-5.5); Total Protein, Blood 6.1 g/dL (6.4-8.2)
--- NOTE | 2023-12-07 08:15 | NUR ---
INITIAL ASSESSMENT: Patient is awake lying on her left side. She is sudanese speaking only, interpter phone used for assessment. She denies pain at this time. HRR, SR in the 90s. Her blood pressure has been on the softer side, this morning her MAP is at 65. LS CTA, she is mid 90s on RA. BT Hypoactive, patient denies pain at this time. PPP. She is going to need a unit of PRBCs this am, this was discussed with her via interpter. The hospitalist is at the bedside as well. She asks that we all talk with her again when her returns, he stepped out to check on things at home. She denies other needs at this time. Call light in reach.
--- NOTE | 2023-12-07 13:00 | NUR ---
UPdate: Dr. Kelley came to see the patient, the plan is for a colonscopy with Dr. Ayers in the morning aroudn 1030. She is to complete the Suprep tonight. She denies other needs at this time, her hgb is stable after 1U PRBCs. She denies other needs at this time. Call light in reach.
[2023-12-07 14:20] LABS: Hematocrit 24.9 % (33.0-51.0); Hemoglobin 8.6 g/dL (11.5-16.0)
[2023-12-07] MEDS ORDERED: Sodium, Potassium,Mag Sulfates 354 ML PO SCH (18:00)
--- NOTE | 2023-12-07 18:21 | NUR ---
Summary: Patient is a japanese speaking only patient that was admitted with sepsis, she has been alert and oriented x4 T/O the shift. She has had a couple of C/O abd pain during the shift, she had good relief with Fentanyl IV. HRR, she has been SR in the 80s-90s, her blood pressure has been a little on the low side but the MAP has been above 65. LS CTA, Biox is high 90s on RA. BT+. She is ambulating to the bathroom with the assistance of her . She C/O aching pain in her bladder at the end of her voiding. She started her Suprep this evening and will have a colonscopy tomrrow morning around 1030 am. No acute changes this shift, will report to oncoming RN.
--- NOTE | 2023-12-07 20:43 | NUR ---
ASSUMPTION OF CARE: AFTER RECEIVING REPORT FROM RUPINDER RUCKER, THIS RN ASSUMED CARE AT APPROX 1915. PATIENT ALERT, SITTING ON SIDE OF BED DURING INITIAL ENCOUNTER. PRIMARILY, CROATIAN SPEAKING. AT BEDSIDE TO ASSIST WITH COMMUNICATION AND CARE. TELEMETRY SHOWING SINUS, SINUS TACH 90s-100s. BP SOFT, SBP 90s-100s. MAP >65. DENIES CHEST PAIN, PRESSURE. IS ON ROOM AIR, SATs >90%. RESPIRATIONS EVEN, UNLABORED. BOWEL PREP FOR PLANNED COLONOSCOPY TOMORROW MORNING STARTED. PATIENT IS A STAND BY ASSIST TO BEDSIDE COMMODE, RESTROOM. CALL LIGHT IN REACH.
--- NOTE | 2023-12-07 22:34 | NUR ---
REPORT GIVEN TO JESSICA RUCKER TO ASSUME CARE
--- NOTE | 2023-12-07 23:15 | NUR ---
ASSUMPTION OF CARE RECEIVED INTO CARE, REPORT GIVEN BY CHAIM THOMAS. PT LYING IN BED, ALERT AND ORIENTED, AT BEDSIDE. IN SR. ASSISTS WITH ADLS. NO VOICED CONCERNS AT THIS TIME. CALL STROUD IN REACH.
[2023-12-08] VITALS (18 sets, daily range): BP systolic 85–127; BP diastolic 52–78
[2023-12-08] MEDS ORDERED: Sodium, Potassium,Mag Sulfates 354 ML PO SCH (04:00)
--- NOTE | 2023-12-08 06:23 | NUR ---
SHIFT SUMMARY SLEPT WELL. AT BEDSIDE, ASSISTS WITH ADLS. ON RA. IN SR, BP SOFT, SBP 90S, MAP MAINTAINED ABOVE 65. EDEMA TO LEGS. BOWEL PREP GIVEN PLAN FOR SCOPE TODAY. MULTIPLE BMS OVERNIGHT. PT AWARE OF NPO AT 0700. NO VOICED CONCERNS AT THIS TIME. REMAINS LYING IN BED AWAKE, AT BEDSIDE. CALL STROUD IN REACH.
[2023-12-08 07:06] LABS: BASOPHILS ABSOLUTE AUTO 0.04 K/mm3 (0.00-0.23); BASOPHILS PERCENT AUTO 1 % (0-2); EOSINOPHILS ABSOLUTE AUTO 0.07 K/mm3 (0.00-0.68); EOSINOPHILS PERCENT AUTO 2 % (0-6); Hematocrit 23.9 % (33.0-51.0); Hemoglobin 8.3 g/dL (11.5-16.0); IMMATURE GRAN ABSOLUTE AUTO 0.02 K/mm3 (0.00-0.10); IMMATURE GRAN PERCENT AUTO 1 % (0-1); LYMPHOCYTES ABSOLUTE AUTO 0.94 K/mm3 (0.84-5.20); LYMPHOCYTES PERCENT AUTO 24 % (21-46); MONOCYTES ABSOLUTE AUTO 0.33 K/mm3 (0.16-1.47); MONOCYTES PERCENT AUTO 9 % (4-13); Mean Corpuscular HGB 36.4 pg (26.0-34.0); Mean Corpuscular HGB Conc 34.7 g/dL (31.5-36.5); Mean Corpuscular Volume 105 fL (80-100); Mean Platelet Volume 9.3 fL (9.1-12.4); NEUTROPHILS ABSOLUTE AUTO 2.46 K/mm3 (1.96-9.15); NEUTROPHILS PERCENT AUTO 64 % (41-73); Platelet Count 101 K/mm3 (150-400); RDW Coefficient Variation 16.9 % (11.7-14.2); RDW Standard Deviation 65.6 fL (35.1-46.3); Red Blood Cell Count 2.28 M/mm3 (3.80-5.20); White Blood Cell Count 3.86 K/mm3 (4.00-11.30)
[2023-12-08 07:19] LABS: Albumin, Blood 1.5 g/dL (3.4-5.0); Albumin/Globulin Ratio 0.3 (0.8-1.8); Bilirubin, Total 3.5 mg/dL (0.1-1.0); Bun/Creatinine Ratio 8.9 (12.0-20.0); Creatinine, Blood 0.68 mg/dL (0.40-1.00); Globulin, Blood 5.4 g/dL (2.2-4.0); Potassium, Blood 3.4 mmol/L (3.5-5.5); Total Protein, Blood 6.9 g/dL (6.4-8.2)
[2023-12-08] MEDS ORDERED: Potassium Chloride 20 MEQ/15 ML UDC PO ONE (07:40)
--- NOTE | 2023-12-08 09:38 | NUR ---
AM NOTE: PATIENT ALERT AND ORIENTED X4. GREEK SPEAKING ONLY, DENIES NEED FOR INTERPRETOR. REMAINS AT BEDSIDE. PERRLA, WEARING GLASSES. DENIES NUMBNESS/TINGLING. UP WITH SBA TO BATHROOM. MOVING ALL EXTREMITIES WNL. MINIMAL EDEMA NOTED TO BLE. TELE SHOWING SR/ST WITH HR 90-100'S. BP STABLE WITH SBP 110 THIS AM. PPP. DENIES CHEST PAIN/PRESSURE/PALPITATIONS. SCD'S. IN PLACE. SALINE LOCKED AT THIS TIME. LUNGS SOUNDS CLEAR. PATIENT DENIES SOB/COUGH. EVEN AND UNLABORED RESPIRATIONS. BOWEL TONES PRESENT. PATIENT REPORTS OCCASIONAL ABDOMINAL PAIN/TENDERNESS. BOWEL PREP COMPLETED THIS AM PRIOR TO THIS SHIFT AND PATIENT MADE NPO AT 0700. PATIENT REPORTING CLEAR STOOLS. PLAN FOR COLONOSCOPY THIS AM. SKIN C/D/I. PATIENT SLEEPING ON RIGHT SIDE AT THIS TIME. DENIES NEEDS. CALL LIGHT IN REACH, REMAINS AT BEDSIDE.
--- NOTE | 2023-12-08 11:03 | NUR ---
DR. JASSO AT BEDSIDE TO ASSESS PATIENT, THIS RN AT BEDSIDE FOR PROVIDER ROUNDING. LAB IN ROOM AT THIS TIME. PATIENT REMAINS NPO AND STOOL REMAINS CLEAR.
[2023-12-08] MEDS ORDERED: Lactated Ringer's 1,000 ML IV SCH (11:15)
--- NOTE | 2023-12-08 11:22 | NUR ---
CHAIM BARKER IN TO PLASTICS FITTER PATIENT FOR DAY SURGERY AT THIS TIME. PATIENT LEFT UNIT VIA GURNEY WITH DAY SURGERY RN AND . SEISMOGRAPH RECORDER NOTIFIED.
[2023-12-08 11:32] LABS: International Normalized Ratio 1.54; Prothrombin Time Results 15.8 Sec (9.7-11.5)
--- NOTE | 2023-12-08 12:18 | NUR ---
PT HERE FROM U 11 VIA GURNEY W/. PT IS CROATIAN SPEAKING ONLY. MANAGER FOOD PHONE USED FOR H&P. Patient confirms NPO status and agrees with scheduled surgery. History, Chart, Medications and Allergies reviewed before start of procedure.Pre-Op teaching done. Pt verbalizes understanding.
[2023-12-08] MEDS ORDERED: propofoL 20 ML IV ONE ×4 (12:51→13:35)
[2023-12-08] MEDS ORDERED: Lidocaine 2% 5 ML SDV ONE (12:52)
--- NOTE | 2023-12-08 13:16 | NUR ---
12/08/23 1316 Reyes Payan HISTORY, CHART, MEDICATIONS AND ALLERGIES REVIEWED BEFORE START OF PROCEDURE. PATIENT CONFIRMS NPO STATUS AND AGREES WITH SCHEDULED PROCEDURE. 3-LEAD EKG REVIEWED WITH PHYSICIAN PRIOR TO START OF PROCEDURE. MONITOR INTACT WITH CONTINUOUS PULSE OXIMETRY,CAPNOGRAPHY, 3-LEAD EKG, INTERMITTENT BP. SUPPLEMENTAL O2 TO BE TITRATED THROUGHOUT PROCEDURE TO MAINTAIN O2 SATURATION ABOVE 90% See Anesthesia record WITH DR TUTTLE.
--- NOTE | 2023-12-08 14:39 | NUR ---
PATIENT RETURNS TO ROOM POST EGD AND COLONOSCOPY. UP TO BATHROOM WITH MINIMAL JO RED BLOOD ON WIPE. DR. JASSO BY TO DISCUSS WITH THIS RN. DR. JASSO NOTED TO THIS RN THAT PATIENT HAS SOME HEMORRHOIDS AND SOME RED BLOOD MAY BE NOTED WHEN GOING TO BATHROOM. PATIENT ALERT AND ORIENTED. ABLE TO SWALLOW SIPS OF WATER SAFELY. REMAINS AT BEDSIDE. POST OP VITALS IN PROGRESS. SBP 90'S. MAP ABOVE 65. IV ZOSYN INFUSING.
--- NOTE | 2023-12-08 17:11 | NUR ---
MAP OF 63. PATIENT ASYMPTOMATIC. DR. MCDONNELL CALLED TO UPDATE. NO NEW ORDERS AT THIS TIME. GOAL FOR MAP TO BE ABOVE 60. OKAY TO ADVANCE PATIENT TO FULL LIQUID HEPATIC DIET AT THIS TIME.
[2023-12-09 03:26] VITALS: BP 86/52
[2023-12-09 04:06] LABS: Hematocrit 21.9 % (33.0-51.0); Hemoglobin 7.5 g/dL (11.5-16.0); Mean Corpuscular HGB 36.4 pg (26.0-34.0); Mean Corpuscular HGB Conc 34.2 g/dL (31.5-36.5); Mean Corpuscular Volume 106 fL (80-100); Mean Platelet Volume 9.5 fL (9.1-12.4); Platelet Count 103 K/mm3 (150-400); RDW Coefficient Variation 16.4 % (11.7-14.2); RDW Standard Deviation 64.7 fL (35.1-46.3); Red Blood Cell Count 2.06 M/mm3 (3.80-5.20); White Blood Cell Count 4.58 K/mm3 (4.00-11.30)
[2023-12-09 04:32] LABS: Bun/Creatinine Ratio 8.1 (12.0-20.0); Calcium, Blood 8.1 mg/dL (8.5-10.1); Creatinine, Blood 0.74 mg/dL (0.40-1.00); Potassium, Blood 3.4 mmol/L (3.5-5.5)
--- NOTE | 2023-12-09 04:38 | NUR ---
SHIFT SUMMARY. PT AOX4, PLEASANT, COOPERATIVE WITH CARE THROUGHOUT SHIFT. ABLE TO MAKE NEEDS KNOWN. REMAINS AT BEDSIDE TO ASSIST WITH TRANSLATION PT DOES NOT WANT TO USE TRANSLATION PHONE. PRIMARY GOAL OF SHIFT HAS BEEN PAIN MANAGEMENT. PAIN MANAGEMENT HAS BEEN ADEQUATE THIS SHIFT THUS FAR WITH ONLY ONE INSTANCE OF BREAKTHROUGH PAIN. NOTIFIED RESIDENT DR. Clayton WHO DIRECTED TO GIVE PRN FENTANYL EARLY. SINCE THAT TIME, PT HAS BEEN ABLE TO SLEEP THROUGHOUT MOST OF SHIFT WITH ONLY INTERMITTENT PAIN MEDICATION REQUESTS THAT ARE BEING ADEQUATELY COVERED BY FENTANYL 50 MCG Q4. TELE ON THROUGHOUT SHIFT, NO EVENTS THUS FAR. BP HAS BEEN SOFT THROUGHOUT SHIFT BUT MAP HAS REMAINED >60. MD AWARE, DOES NOT WANT TO INTERVENE SO LONG MAP REMAINS >60. CALLS APPROPRIATELY FOR ASSISTANCE AND IS ABLE TO MAKE NEEDS KNOWN. BED LOCKED IN LOWEST POSITION. CALL LIGHT LEFT WITHIN REACH. CONTINUING TO MONITOR.
[2023-12-09] MEDS ORDERED: Potassium Chloride 10 Meq Tablet SA PO ONE (06:45)
[2023-12-09 07:43] VITALS: BP 83/61
--- NOTE | 2023-12-09 10:36 | NUR ---
[facility]: Care assumed at 0700hr. Patient alert and oriented x4. C/o pain to lower ABD, effectively treated with prn fentanyl. Patient mostly israeli speaking but understands and speaks some belizean. at bedside, able to effectively translate for patient. VSS, but BP soft with systolic in the 80's, MAP 60-65. SpO2 98% on RA, denies dyspnea/SOB. Peripheral IV x1 patent and intact. Independent in room, ambulating to bathroom and back to bed without difficulty. Clear yellow urine output. Call light in reach, makes needs known. Will continue to monitor.
[2023-12-09 11:42] VITALS: BP 79/69
[2023-12-09] MEDS ORDERED: LevoFLOXacin 750 MG/D5W 150ML 150 ML IV SCH (12:30)
[2023-12-09 14:36] LABS: Hematocrit 21.3 % (33.0-51.0); Hemoglobin 7.3 g/dL (11.5-16.0)
[2023-12-09 15:18] LABS: Hematocrit 21.5 % (33.0-51.0); Hemoglobin 7.2 g/dL (11.5-16.0); Mean Corpuscular HGB Conc 33.5 g/dL (31.5-36.5); Mean Corpuscular Volume 108 fL (80-100); Mean Platelet Volume 9.4 fL (9.1-12.4); Platelet Count 97 K/mm3 (150-400); RDW Coefficient Variation 16.7 % (11.7-14.2); RDW Standard Deviation 65.6 fL (35.1-46.3); White Blood Cell Count 3.83 K/mm3 (4.00-11.30)
[2023-12-09 17:07] VITALS: BP 89/58
--- NOTE | 2023-12-09 18:00 | NUR ---
Shift Summary: No significant changes throughout shift. VSS remain stable, but BP remains soft with systolic's in the 80's, MAP's 60-65. Continues to be independent in room, transferring to bathroom and back to bed without difficulty. Tolerating PO intake without difficulty. Very scant amount of bright red blood seen in urine x1 this shift, urine otherwise clear and yellow. C/o pain to lower ABD, effectively managed with x3 pnr fentanyl this shift. Peripheral IV remains patent and intact. at bedside throughout shift, effectively translating needs for patient. Call light in reach, makes needs known. Will continue to monitor until report to NOC shift RN.
[2023-12-09 19:20] VITALS: BP 90/56
[2023-12-09 20:00] LABS: Hematocrit 22.3 % (33.0-51.0); Hemoglobin 7.7 g/dL (11.5-16.0); Mean Corpuscular HGB 36.7 pg (26.0-34.0); Mean Corpuscular HGB Conc 34.5 g/dL (31.5-36.5); Mean Corpuscular Volume 106 fL (80-100); Mean Platelet Volume 9.2 fL (9.1-12.4); Platelet Count 101 K/mm3 (150-400); RDW Coefficient Variation 16.4 % (11.7-14.2)
[2023-12-09] MEDS ORDERED: Calcium Carbonate 500 MG Tab Chew PO PRN (20:15)
[2023-12-10 00:45] VITALS: BP 83/48
[2023-12-10 03:26] VITALS: BP 94/57
[2023-12-10 04:43] LABS: BASOPHILS ABSOLUTE AUTO 0.04 K/mm3 (0.00-0.23); BASOPHILS PERCENT AUTO 1 % (0-2); EOSINOPHILS ABSOLUTE AUTO 0.07 K/mm3 (0.00-0.68); EOSINOPHILS PERCENT AUTO 2 % (0-6); Hemoglobin 7.1 g/dL (11.5-16.0); IMMATURE GRAN ABSOLUTE AUTO 0.01 K/mm3 (0.00-0.10); IMMATURE GRAN PERCENT AUTO 0 % (0-1); LYMPHOCYTES ABSOLUTE AUTO 1.24 K/mm3 (0.84-5.20); LYMPHOCYTES PERCENT AUTO 34 % (21-46); MONOCYTES ABSOLUTE AUTO 0.41 K/mm3 (0.16-1.47); MONOCYTES PERCENT AUTO 11 % (4-13); Mean Corpuscular HGB 36.2 pg (26.0-34.0); Mean Corpuscular HGB Conc 33.8 g/dL (31.5-36.5); Mean Corpuscular Volume 107 fL (80-100); Mean Platelet Volume 9.2 fL (9.1-12.4); NEUTROPHILS ABSOLUTE AUTO 1.87 K/mm3 (1.96-9.15); NEUTROPHILS PERCENT AUTO 51 % (41-73); Platelet Count 101 K/mm3 (150-400); RDW Coefficient Variation 16.3 % (11.7-14.2); Red Blood Cell Count 1.96 M/mm3 (3.80-5.20); White Blood Cell Count 3.64 K/mm3 (4.00-11.30)
[2023-12-10 05:01] LABS: Albumin, Blood 1.4 g/dL (3.4-5.0); Albumin/Globulin Ratio 0.3 (0.8-1.8); Bilirubin, Total 2.3 mg/dL (0.1-1.0); Bun/Creatinine Ratio 6.2 (12.0-20.0); Creatinine, Blood 0.81 mg/dL (0.40-1.00); Potassium, Blood 3.7 mmol/L (3.5-5.5); Total Protein, Blood 6.4 g/dL (6.4-8.2)
--- NOTE | 2023-12-10 05:28 | NUR ---
SHIFT SUMMARY. PT HAS BEEN DOING WELL THIS SHIFT. PT REMAINS AOX4, PLEASANT, COOPERATIVE WITH CARE, CALLS APPROPRIATELY, ABLE TO MAKE NEEDS KNOWN. PAIN AHS BEEN ADEQUATELY MANAGED ON CURRENT PAIN MEDICATION REGIMEN. BP HAS CONTINUED TO TREND SOFT THIS SHIFT THUS FAR BUT MAP HAS REMAINED =>60 THUS FAR. MD AWARE, ALLOWING NO INTERVENTION FOR BP SO LONG MAP REMAINS =>60. HAS REMAINED AT BEDSIDE THROUGHOUT SHIFT, ASSISTING WITH TRANSLATION. TELE ON THROUGHOUT SHIFT WITH NO CHANGES OR EVENTS THUS FAR. CONTINUES TO MAINTAIN ADEQUATE SATURATION ON ROOM AIR. BED LOCKED IN LOWEST POSITION. CALL LIGHT LEFT WITHIN REACH. CONTINUING TO MONITOR.
--- NOTE | 2023-12-10 07:15 | NUR ---
Assumed care of pt at 0700. Bedside report recieved from Marvin RUCKER. Pt is predominantly cypriot speaking. Pt's spouse at bedside fluent in Hungarian and Malagasy. Manager Corporate phone at bedside and used as needed. Pt independent in room. SpO2 90% or greater with room air. SR per monitor. BP stable.
[2023-12-10] MEDS ORDERED: OxyCODONE HCL 5 MG TAB PO PRN (08:00)
[2023-12-10 08:04] VITALS: BP 94/56
[2023-12-10] MEDS ORDERED: VISBIOME 112.51 EACH PO (09:56)
[2023-12-10] MEDS ORDERED: LEVO750 PO (09:56)
[2023-12-10 10:22] LABS: Hematocrit 23.7 % (33.0-51.0)
--- NOTE | 2023-12-10 13:14 | NUR ---
Patient discharged from unit at [address] Vicente regarding follow up with surgeon in [place]. Pt and spouse verbalize understanding that they are to follow up with PCP and surgeon as scheduled. New medications sent to pharmacy and written prescription for oxycodone sent with patient. Escorted to entrance via wheelchair by RENU Goodwin.
== END 2023-12-10 11:50 | disposition home or self-care (01) | DRG 871 ==
LOC: ER 20:07 → ERHOLD 23:47 → PCU 23:47
PROVIDERS: Emergency Medicine; Family Medicine; Family Medicine Adult Medicine; Hospitalist; Student in an Organized Health Care Education/Training Program; Surgery; ADMIT Internal Medicine
PROC: 0DBM8ZZ Excision of Descending Colon, Via Natural or Artificial Opening Endoscopic (ICD-10-PCS; 2023-12-08)
PROC: 3E03329 Introduction of Other Anti-infective into Peripheral Vein, Percutaneous Approach (ICD-10-PCS; 2023-12-08)
PROC: 30233N1 Transfusion of Nonautologous Red Blood Cells into Peripheral Vein, Percutaneous Approach (ICD-10-PCS; 2023-12-08)
PROC: 0DJ08ZZ Inspection of Upper Intestinal Tract, Via Natural or Artificial Opening Endoscopic (ICD-10-PCS; principal; 2023-12-08 11:30)
PROC: 0DBK8ZZ Excision of Ascending Colon, Via Natural or Artificial Opening Endoscopic (ICD-10-PCS; 2023-12-08 11:30)
PROC: 0DBN8ZZ Excision of Sigmoid Colon, Via Natural or Artificial Opening Endoscopic (ICD-10-PCS; 2023-12-08 11:30)
DX: A41.9 Sepsis, unspecified organism (principal); K29.71 Gastritis, unspecified, with bleeding; K57.31 Diverticulosis of large intestine without perforation or abscess with bleeding; N32.1 Vesicointestinal fistula; N30.00 Acute cystitis without hematuria; K57.32 Diverticulitis of large intestine without perforation or abscess without bleeding; D62 Acute posthemorrhagic anemia; E87.1 Hypo-osmolality and hyponatremia; E87.20 Acidosis, unspecified; R65.20 Severe sepsis without septic shock; B96.1 Klebsiella pneumoniae [K. pneumoniae] as the cause of diseases classified elsewhere; K74.60 Unspecified cirrhosis of liver; E87.6 Hypokalemia; F10.20 Alcohol dependence, uncomplicated; K21.9 Gastro-esophageal reflux disease without esophagitis; F17.210 Nicotine dependence, cigarettes, uncomplicated; K63.5 Polyp of colon; K64.8 Other hemorrhoids; Z79.899 Other long term (current) drug therapy; D69.6 Thrombocytopenia, unspecified
CPT/HCPCS: 36415; 36430; 74177; 80048; 80053; 81001; 83605; 83735; 85014; 85018; 85025; 85027; 85610; 86850; 86900; 86901; 86923; 87040; 87077; 87086; 87186; 88305; 93005; 93010; 96361; 96365-59; 96375; 96376; 99285-25; A9270; C9113; J1956; J2405; J2543; J2704; J3010; J7030; J7050; J7120; P9016; Q9967

== ENCOUNTER → 2023-12-15 | Outpatient (CLI) | payer BC ==
[~2023-12-15] MED LIST changes: +ALDACTONE100 MG PO; +LEVO750 PO; +ONDA4ODT MM
== END | disposition home or self-care (01) ==
LOC: LAB 15:52 → LAB SHORT 15:52
DX: N39.0 Urinary tract infection, site not specified (principal); R31.9 Hematuria, unspecified
CPT/HCPCS: 87086

== ENCOUNTER 2023-12-19 21:28 | Emergency (ER) | payer BC ==
[~2023-12-19] VITALS: Ht 160 cm; Wt 86.2 kg
[~2023-12-19 21:28] MED LIST changes: -ALDACTONE100 MG PO; -ONDA4ODT MM
[2023-12-19 22:02] LABS: BASOPHILS ABSOLUTE AUTO 0.06 K/mm3 (0.00-0.23); BASOPHILS PERCENT AUTO 1 % (0-2); EOSINOPHILS ABSOLUTE AUTO 0.06 K/mm3 (0.00-0.68); EOSINOPHILS PERCENT AUTO 1 % (0-6); Hematocrit 22.7 % (33.0-51.0); Hemoglobin 8.2 g/dL (11.5-16.0); IMMATURE GRAN PERCENT AUTO 0 % (0-1); LYMPHOCYTES ABSOLUTE AUTO 1.36 K/mm3 (0.84-5.20); LYMPHOCYTES PERCENT AUTO 26 % (21-46); MONOCYTES ABSOLUTE AUTO 0.56 K/mm3 (0.16-1.47); MONOCYTES PERCENT AUTO 11 % (4-13); Mean Corpuscular HGB 37.1 pg (26.0-34.0); Mean Corpuscular HGB Conc 36.1 g/dL (31.5-36.5); Mean Corpuscular Volume 103 fL (80-100); NEUTROPHILS ABSOLUTE AUTO 3.29 K/mm3 (1.96-9.15); NEUTROPHILS PERCENT AUTO 62 % (41-73); Platelet Count 108 K/mm3 (150-400); RDW Coefficient Variation 14.7 % (11.7-14.2); Red Blood Cell Count 2.21 M/mm3 (3.80-5.20); White Blood Cell Count 5.33 K/mm3 (4.00-11.30)
[2023-12-19 22:22] LABS: Albumin, Blood 1.7 g/dL (3.4-5.0); Albumin/Globulin Ratio 0.3 (0.8-1.8); Bilirubin, Total 2.9 mg/dL (0.1-1.0); Bun/Creatinine Ratio 10.3 (12.0-20.0); Calcium, Blood 7.8 mg/dL (8.5-10.1); Creatinine, Blood 1.26 mg/dL (0.40-1.00); Globulin, Blood 5.7 g/dL (2.2-4.0); Potassium, Blood 3.4 mmol/L (3.5-5.5); Total Protein, Blood 7.4 g/dL (6.4-8.2)
[2023-12-19 22:23] LABS: Source, Urine Clean Catch
[2023-12-19 22:26] LABS: Bilirubin, Urine Neg (Neg); Blood, Urine 5+ (Neg); Glucose Qualitative, Urine Neg (Neg); Ketones, Urine 2+ (Neg); Leukocyte Esterase, Urine 2+ (Neg); Nitrite, Urine Neg (Neg); Protein, Urine 4+ (Neg); Urobilinogen, Urine NORM (Normal)
[2023-12-19 22:28] LABS: Appearance, Urine Turbid (Clear); Color, Urine Red (P-Yellow)
[2023-12-19 22:30] LABS: Red Blood Cells, Urine TNTC /hpf (0-2); Squamous Epithelial Cells Few /hpf (Few)
[2023-12-19 22:31] LABS: Bacteria Mod /hpf
[2023-12-19] MEDS ORDERED: NS 1,000 ML IV SCH (23:55)
[2023-12-20] MEDS ORDERED: Methocarbamol 500 MG Tab PO ONE (00:15)
[2023-12-20] MEDS ORDERED: Spironolactone 50 MG Tab PO ONE (00:15)
[2023-12-20] MEDS ORDERED: LevoFLOXacin 750 MG/D5W 150ML 150 ML IV ONE (00:15)
[2023-12-20] MEDS ORDERED: Albumin (Human) 12.5gm/250ml 250 ML IV ONE (00:20)
[2023-12-20] MEDS ORDERED: OxyCODONE HCL 5 MG TAB PO ONE (00:20)
[2023-12-20 00:55] LABS: International Normalized Ratio 1.43; Prothrombin Time Results 14.7 Sec (9.7-11.5)
[2023-12-20] MEDS ORDERED: Ondansetron 4 MG SoluTab SL ONE (05:15)
[2023-12-20 06:20] LABS: Calcium, Blood 7.5 mg/dL (8.5-10.1); Creatinine, Blood 1.17 mg/dL (0.40-1.00); Potassium, Blood 3.2 mmol/L (3.5-5.5)
[2023-12-20] MEDS ORDERED: ONDA4ODT MM (06:42)
[2023-12-20] MEDS ORDERED: LEVFLO500 PO (06:42)
[2023-12-20] MEDS ORDERED: ALDACTONE100 MG PO (06:42)
[2023-12-20 07:00] VITALS: BP 104/66
== END 2023-12-20 07:18 | disposition home or self-care (01) ==
LOC: ER 21:28
PROVIDERS: Emergency Medicine; Student in an Organized Health Care Education/Training Program
DX: N39.0 Urinary tract infection, site not specified (principal); B96.1 Klebsiella pneumoniae [K. pneumoniae] as the cause of diseases classified elsewhere; B95.2 Enterococcus as the cause of diseases classified elsewhere; N17.9 Acute kidney failure, unspecified; K70.9 Alcoholic liver disease, unspecified; F17.210 Nicotine dependence, cigarettes, uncomplicated; K21.9 Gastro-esophageal reflux disease without esophagitis; Z79.899 Other long term (current) drug therapy
CPT/HCPCS: 74177; 80048; 80053; 81001; 83880; 85025; 85610; 96361; 96365-59; 96366; 96367; 99284-25; A9270; J1956; J7030; P9045; Q9967